=== PATIENT | female | born 1975 | race Caucasian/White ===

== ENCOUNTER → 2017-01-28 | Outpatient (CLI) | payer BC, OTHER ==
[~2017-01-28] MED LIST: CLON0.1T PO; DIVA500T31 PO; HYDR200T PO; HYDR50TA48 PO; LEVO120C PO; MEMA10TA21 PO; OXYC1TAB8 PO; SUMA25TA PO; TIZA4TAB4 PO; TRAM50TA4 PO; WARF5TAB6 PO
--- NOTE | 2017-01-28 11:22 | DI ---
Indication: ITS.REASON: LOW BACK PAIN; RIGHT HIP PAIN; PELVIC PAIN; TAILBONE PAIN PROCEDURE: MRI LUMBAR SPINE W/O CONTRAST: Encounter: Initial Comparison: Pelvis CT from today and MRI lumbar spine dated May 17, 2012 Technique: Multiplanar multisequence MR imaging of the lumbar spine was performed without contrast. Findings: Alignment of the lumbar spine is normal. Vertebral body heights are maintained. No acute fracture. Conus medullaris terminates normally at T12. The paraspinal soft tissues are within normal limits. 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 These are stable dating back to 2011. Segmental analysis: L1-L2: Normal L2-L3: Normal L3-L4: Normal L4-L5: Minimal central bulge without central canal stenosis. No significant neural foraminal stenosis. L5-S1: Normal. Impression: Essentially negative exam with minimal central bulging at L4-L5. .
--- NOTE | 2017-01-28 11:22 | DI ---
Indication: ITS.REASON: LOW BACK PAIN; RIGHT HIP PAIN; PELVIC PAIN; TAILBONE PAIN PROCEDURE: CT PELVIS W/O CONTRAST: Encounter: Initial Comparison: MRI lumbar spine from today Technique: Axial noncontrast CT imaging through the pelvis with coronal and sagittal two-dimensional reformats. Three-dimensional surface shaded volume rendered imaging was also created and reviewed. Automated Exposure Control and Iterative Reconstruction dose reducing techniques were utilized. Findings: No acute fracture identified. Pubic symphysis is normal. Hip joint spaces are maintained. Mild degenerative change in the left hip joint with small osteophytes at the left femoral head neck junction. The soft tissues of the pelvis show no acute findings. Tubal ligation clips are noted. Muscular attenuation is normal. No fluid collection appreciated. One small bone island in each femoral head. Impression: Mild degenerative change in the left hip. No clear etiology for the patient's right hip pain. .
== END ==
LOC: IMA 09:44
PROVIDERS: ATTEND Neurological Surgery
DX: M54.5 Low back pain (principal); M25.551 Pain in right hip; R10.2 Pelvic and perineal pain

== ENCOUNTER → 2017-03-17 | Outpatient (CLI) | payer BC, OTHER ==
[2017-03-17 12:21] LABS: BASOPHILS % (AUTO) 0.6 % (0-2); EOSINOPHILS # (AUTO) 0.1 T/MM3 (0-0.5); EOSINOPHILS % (AUTO) 1.8 % (0-4); HCT - HEMATOCRIT 31.3 % (36-46); HGB - HEMOGLOBIN 9.9 GM/DL (12-16); LYMPHOCYTES # (AUTO) 2.5 T/MM3 (1-4.8); LYMPHOCYTES % (AUTO) 46.4 % (23-45); MEAN CORPUSCULAR HGB 26.5 UUG (26-34); MEAN CORPUSCULAR HGB CONC(MCHC 31.6 GM/DL (31-37); MEAN CORPUSCULAR VOLUME 83.9 UM3 (80-100); MEAN PLATELET VOLUME 9.1 UM3 (9.4-12.4); MONOCYTES # (AUTO) 0.5 T/MM3 (0-0.8); MONOCYTES % (AUTO) 8.4 % (0-9.0); NEUTROPHILS #(AUTO)-ABSOLUTE 2.3 T/MM3 (1.8-7.7); NEUTROPHILS % (AUTO) 42.8 % (33-66); RED BLOOD COUNT 3.73 M/MM3 (4.00-5.20); WBC - WHITE BLOOD COUNT 5.5 T/MM3 (4.5-11.0)
[2017-03-17 12:35] LABS: ALBUMIN 4.2 G/DL (3.5-5.0); ALBUMIN/GLOBULIN RATIO 1.5 RATIO (1.1-2.2); ALKALINE PHOSPHATASE 74 U/L (38-126); ALT (SGPT) 102 U/L (9-52); ANION GAP 10 MEQ/L (5-15); AST (SGOT) 41 U/L (14-36); BUN/CREATININE RATIO 11 RATIO (6-26); CALCIUM 9.2 MG/DL (8.4-10.2); CHLORIDE 101 MEQ/L (98-107); CO2 - CARBON DIOXIDE 27 MEQ/L (22-30); CREATININE 0.7 MG/DL (0.7-1.2); GLOMERULAR FILTRATION RATE 92; GLUCOSE 95 MG/DL (65-110); POTASSIUM 5.2 MEQ/L (3.6-5); SODIUM 138 MEQ/L (134-144)
[2017-03-18 02:28] LABS: FERRITIN 8.48 NG/ML (6-137)
[2017-03-18 02:58] LABS: FOLATE 8.8 NG/ML (2.76-20)
== END ==
LOC: LAB 12:00
PROVIDERS: ATTEND Internal Medicine Medical Oncology
DX: D52.9 Folate deficiency anemia, unspecified (principal); E72.11 Homocystinuria
CPT/HCPCS: 36415; 80053; 82607; 82728; 82746; 83540; 83550; 85025